=== PATIENT | male | born 1965 | race Caucasian/White ===

== ENCOUNTER → 2022-01-08 09:00 | Outpatient (CLI) | payer OTHER, SELFPAY ==
--- NOTE | 2022-01-08 | DI.RAD.S_ITS ---
PROCEDURE: XR CHEST 2V INDICATIONS: PALPITATIONS TECHNIQUE: 2 views of the chest were acquired. COMPARISON: None. FINDINGS: Surgical changes and devices: None. Lungs and pleura: Lungs are clear. No pleural effusions or pneumothorax. Mediastinum: Mediastinal contours are normal. Heart size is normal. Bones and chest wall: No suspicious bony abnormalities. Soft tissues appear unremarkable. IMPRESSION: Normal. Dictated by: Tray Moss M.D. on 01/08/2022 at 8:49 Approved by: Tray Moss M.D. on 01/08/2022 at 8:49
--- NOTE | 2022-01-08 | DI.ECHO.S_ITS ---
[facility]---------+ [facility] +---------+ : : [address] : : : : [id number] : : : : Phone: [phone]---------+ Echocardiogram Report + + :Name: GENNA HARRIS Study Date: 01/08/2022 Height: 72 in : :[facility] ReadingLocation: Weight: 145 lb : : Gender: Male BSA: 1.9 m2 : :: 1965 Age: 56 yrs BP: 121/62 mmHg: :Reason For Study: PALPITATIONS : :Ordering Physician: SHAHIDA, : :EVELIO Newman Performed By: Suzanne Portillo : :Referring: EVELIO PINEDO : + + Interpretation Summary The ejection fraction is estimated to be 55-60%. There is no significant valvular heart disease. Procedure: A two-dimensional transthoracic echocardiogram with color flow and Doppler was performed. The study quality was technically adequate. There is no prior echocardiogram noted for this patient. The patient was in sinus bradycardia with heart rates between 46-55 bpm during the exam. The patient had occasional PVCs during the exam. Left Ventricle: The left ventricle is normal in size and wall thickness. The ejection fraction is estimated to be 55-60%. There are no obvious focal wall motion abnormalities noted but poor endocardial definition reduces the sensitivity for the detection of such. Right Ventricle: The right ventricle is normal in size and function. Atria: The left atrial size is normal. Right atrial size is normal. There is no Doppler evidence for an interatrial shunt. Mitral Valve: The mitral valve is normal in structure and function. There is trace mitral regurgitation. Aortic Valve: The aortic valve is trileaflet. The aortic valve opens well. There is no aortic valve stenosis. No aortic regurgitation is present. Tricuspid Valve: The tricuspid valve is normal in structure and function. There is trace tricuspid regurgitation. The right ventricular systolic pressure is estimated to be at least 17 mmHg based on an estimated right atrial pressure of 3 mm Hg. Pulmonic Valve: The pulmonic valve leaflets are thin and pliable; valve motion is normal. There is no pulmonic valvular regurgitation. Great Vessels: The aortic root is normal size. The dimensions of the ascending aorta are normal. The IVC is of normal diameter and collapses greater than 50% with a sniff. This suggests a low right atrial pressure of 3 mm Hg. Pericardium/ Pleura There is no pericardial effusion. There is no pleural effusion. MMode/2D Measurements & Calculations LVIDd: 5.0 cm LVOT diam: 2.2 cm LVIDs: 3.2 cm Ao root diam: 3.5 cm FS: 35.3 % asc Aorta Diam: 3.3 cm IVSd: 0.57 cm Ao Arch Diam (Prox Trans): 2.6 cm LVPWd: 0.74 cm LV fonseca. diameter/BSA (cm/m^2): 2.7 LV sys. diameter/BSA (cm/m^2): 1.7 LA A2 area: 21.1 cm2 RA long axis: 5.2 cm LA A4 area: 14.5 cm2 RA area: 18.0 cm2 LA length (vol): 5.3 cm RA vol: 52.4 ml LA vol: 49.1 ml RA : 28.2 ml/m2 LA vol index: 26.4 ml/m2 IVC diam: 1.7 cm RVD1 (basal): 3.3 cm RVD2 (mid): 3.0 cm TAPSE: 1.9 cm Doppler Measurements & Calculations Ao V2 max: 112.8 cm/sec LVOT Max Pan: 85.1 cm/sec Ao V2 mean: 73.0 cm/sec LV V1 max P.9 mmHg Ao max P.1 mmHg LV V1 VTI: 18.2 cm Ao mean P.5 mmHg ELVIS(I,D): 2.8 cm2 Ao V2 VTI: 25.0 cm ELVIS(V,D): 2.9 cm2 sev ratio: 0.73 ELVIS indexed to BSA (cm^2/m^2): 1.5 MV E max pan: 71.1 cm/sec TR max pan: 188.0 cm/sec MV A max pan: 60.6 cm/sec TR max P.1 mmHg MV E/A: 1.2 PA V2 max: 88.2 cm/sec Med Peak E' Pan: 7.3 cm/sec PA V2 mean: 58.7 cm/sec E/E' med: 9.7 PA mean P.6 mmHg Lat Peak E' Pan: 13.0 cm/sec PA pr(Accel): 7.1 mmHg E/E' lat: 5.5 E/e' average: 7.6 MV dec time: 0.28 sec SV(LVOT): 69.7 ml Reading Physician:02:58 PM
== END ==
PROVIDERS: PCP Family Medicine; Referring Provider Family Medicine; Visit Provider Family Medicine
DX: R00.2 Palpitations (principal); J01.90 Acute sinusitis, unspecified
CPT/HCPCS: 71046; 93306

== ENCOUNTER 2023-01-11 13:28 | Emergency (ER) | payer OTHER, SELFPAY ==
[2023-01-11 13:36] VITALS: BP 138/62; PULSE 62; RESP 18; TEMP 36.6; O2SAT 99; BMI 19.2
--- NOTE | 2023-01-11 13:46 | DI.RAD.S_ITS ---
PROCEDURE: XR CHEST 1V INDICATIONS: chest pain TECHNIQUE: One view of the chest was acquired. COMPARISON: [facility], CR, XR CHEST 2V, 01/08/2022, 9:03. FINDINGS: Surgical changes and devices: None. Lungs and pleura: Lungs are clear. No pleural effusions or pneumothorax. Mediastinum: Mediastinal contours appear normal. Heart size is normal. Bones and chest wall: No suspicious bony lesions. Overlying soft tissues appear unremarkable. IMPRESSION: No acute cardiopulmonary process. Dictated by: Tr Flood M.D. on 01/11/2023 at 14:00 Approved by: Tr Flood M.D. on 01/11/2023 at 14:01
[2023-01-11 14:00] VITALS: BP 133/70; PULSE 60; O2SAT 99
--- NOTE | 2023-01-11 14:05 | ED_ITS ---
HPI - Arrhythmia/Palpitations General Chief Complaint: Arrhythmia/Palpitations Stated Complaint: sent by DR to have his heart rate checked Time Seen by Provider: 01/11/23 13:48 Source: patient Mode of arrival: Ambulatory Limitations: no limitations History of Present Illness HPI narrative: Patient is a 57-year-old male who had an appointment with his primary doctor earlier today for evaluation of recurrent palpitations. He states that while he was at that appointment he had an EKG performed. He was told to come to the emergency department by his primary doctor because of an abnormal EKG. He does not have this EKG with him. He does not know what the doctor told him was wrong with the EKG. He is scheduled for an echocardiogram next week. He also discussed with his primary doctor today about having a Holter monitor but is unsure if this has been ordered. He currently does not have any symptoms. Related Data Allergies Allergy/AdvReac Type Severity Reaction Status Date / Time No Known Drug Allergies Allergy Verified 01/11/23 13:46 Review of Systems Constitutional Constitutional: Reports system reviewed and no additional complaints, except as documented Cardiovascular Cardiovascular: Reports system reviewed and no additional complaints, except as documented Respiratory Respiratory: Reports system reviewed and no additional complaints, except as do cumented Gastrointestinal Gastrointestinal: Reports system reviewed and no additional complaints, except as documented Hematologic/Lymphatic On Anticoagulants: No Patient History Social History Smoking Status: Never smoker Smoking Status: Never smoker alcohol intake frequency: holidays/special occasions only Substance Use Type: does not use Exam Initial Vital Signs Initial Vital Signs: Vital Signs Temperature 97.8 F 01/11/23 13:36 Pulse Rate 62 01/11/23 13:36 Respiratory Rate 18 01/11/23 13:36 Blood Pressure 138/62 01/11/23 13:36 Pulse Oximetry 99 01/11/23 13:36 Oxygen Delivery Method 01/11/23 13:36 Const General: cooperative, comfortable and No ill appearing HENMT Head: normal to inspection and normocephalic Resp Effort & Inspection: normal respiratory effort Auscultation: clear to auscultation bilaterally Cardio Rate: bradycardic Rhythm: regular rhythm GI Inspection: normal to inspection Skin General: no rashes or lesions noted Neuro General: patient alert and moves all extremities Extrem General: normal to inspection and capillary refill normal Course Orders Ordered: ED Orders 01/11/23 13:46 XR chest 1V Stat EKG-12 Lead Stat 01/11/23 13:52 Complete Blood Count AUTO DIFF Stat Comprehensive Metabolic Panel Stat Lipase Stat Magnesium Stat Troponin & CK Cardiac Panel Stat Vital Signs Vital signs: Vital Signs - 8 hr 01/11/23 13:36 01/11/23 14:00 01/11/23 14:30 Temperature 97.8 F Pulse Rate 62 60 59 L Respiratory Rate 18 18 Blood Pressure 138/62 133/70 104/57 L Pulse Oximetry 99 99 99 Oxygen Delivery Method Room Air Room Air Room Air MDM - Arrhythmia/Palpitations Lab Data Attestation: I reviewed the patient's lab results. 01/11/23 13:52 01/11/23 13:52 Labs: Lab Results 01/11/23 01/11/23 Range/Units 13:52 13:52 WBC 4.0 L (4.5-11.0) X10^3/uL RBC 4.72 (4.5-5.9) X10^6/uL Hgb 14.5 (13.5-17.5) g/dL Hct 41.8 (41-53) % MCV 88.5 (80-100) fL MCH 30.7 (26-34) PG MCHC 34.7 (30-36) % RDW 12.7 (11.6-14.8) % Plt Count 199 (150-400) X10^3/uL Neut % (Auto) 65.6 (50-75) % Lymph % (Auto) 24.2 L (25-40) % [place] % (Auto) 7.8 (3-14) % Eos % (Auto) 2.0 (2-4) % Baso % (Auto) 0.4 (0-2) % Neut # (Auto) 2600 (1404-2606) /uL Lymph # (Auto) 1000 L (5153-8413) /uL Newport # (Auto) 300 (0-900) /uL Eos # (Auto) 100 (0-450) /uL Baso # (Auto) 0 (0-100) /uL Sodium 138 (137-145) mmol/L Potassium 3.8 (3.4-5.1) mmol/L Chloride 99 (98-107) mmol/L Carbon Dioxide 29 (22-32) mmol/L BUN 17 (9-20) mg/dL Creatinine 0.74 (0.66-1.25) mg/dL Estimated GFR > 60 (>60) mL/min BUN/Creatinine Ratio 23.0 H (6-22) Glucose 124 H (70-100) mg/dL Calcium 9.1 (8.4-10.2) mg/dL Magnesium 2.1 (1.6-2.3) mg/dL Total Bilirubin 0.5 (0.2-1.3) mg/dL AST 31 (17-59) IU/L ALT 29 (<50) IU/L Alkaline Phosphatase 34 L (38-126) U/L Total Creatine Kinase 141 (55-170) U/L CK-MB (CK-2) 1.36 (<2.37) ng/mL CK-MB (CK-2) Rel Index 1.0 L (1.5-5.0) % Troponin I < 0.012 (0.01-0.034) ng/mL Total Protein 7.2 (6.3-8.2) g/dL Albumin 4.3 (3.5-5.0) g/dL Globulin 2.9 (1.7-4.1) g/dL Albumin/Globulin Ratio 1.5 (1.0-2.8) Lipase 54 (23-300) U/L Imaging Data Chest x-ray: Radiologist's Impresson: PROCEDURE:? XR CHEST 1V ? INDICATIONS:? chest pain ? TECHNIQUE:? One view of the chest was acquired.? ? COMPARISON:? [facility], , XR CHEST 2V, 01/08/2022, 9:03. ? FINDINGS:? ? Surgical changes and devices:? None.? ? Lungs and pleura:? Lungs are clear.? No pleural effusions or pneumothorax.? ? Mediastinum:? Mediastinal contours appear normal.? Heart size is normal.? ? Bones and chest wall:? No suspicious bony lesions.? Overlying soft tissues appear unremarkable.? ? IMPRESSION:? No acute cardiopulmonary process. ECG Data Attestation: I personally reviewed and interpreted this ECG as follows: Interpretation: Sinus bradycardia Ventricular rate of 51 Normal axis Normal QRS Normal QTC No ST T wave changes MDM Narrative Medical decision making narrative: I did not have the EKG from his primary doctor to review however other than bradycardia his EKG here in the ER is unremarkable. He also was not having any palpitations here in the ER. His labs and chest x-ray are unremarkable. Chest x-ray is unremarkable. Patient states he has talked with his primary doctor about a Holter monitor. He also is scheduled for an echocardiogram next week. Provided reassurance to the patient. No further workup required in the emergency department. Will discharge patient home with return precautions. He expressed understanding and agreement. Discharge Plan Departure Patient Disposition: Home Clinical Impression: Palpitations Instructions: DI for Arrhythmias Activity Restrictions/Additional Instructions: Your workup here in the emergency department is unremarkable. I do recommend that you talk with your primary doctor about the indications for a Holter monitor and keep the appointment that you have scheduled for the echocardiogram. Return to the emergency department for any new symptoms. Referrals: Oscar Betts MD [Primary Care Provider] - Stand Alone Forms: Patient Portal/API
[2023-01-11 14:08] LABS: Add Manual Diff / Slide Review NO; Basophils Absolute Auto 0 /uL (0-100); Basophils Percent Auto 0.4 % (0-2); Eosinophils Absolute Auto 100 /uL (0-450); Hematocrit 41.8 % (41-53); Hemoglobin 14.5 g/dL (13.5-17.5); Lymphocytes Absolute Auto 1000 /uL (1100-4500); Lymphocytes Percent Auto 24.2 % (25-40); Mean Corpuscular HGB Conc 34.7 % (30-36); Mean Corpuscular Hemoglobin 30.7 PG (26-34); Mean Corpuscular Volume 88.5 fL (80-100); Monocytes Absolute Auto 300 /uL (0-900); Monocytes Percent Auto 7.8 % (3-14); Neutrophils Absolute Auto 2600 /uL (1500-7000); Neutrophils Percent Auto 65.6 % (50-75); Platelet Count 199 X10^3/uL (150-400); Red Blood Cell Count 4.72 X10^6/uL (4.5-5.9); Red Cell Distribution Width 12.7 % (11.6-14.8)
[2023-01-11 14:22] LABS: Alanine Aminotransferase 29 IU/L (<50); Albumin 4.3 g/dL (3.5-5.0); Albumin Globulin Ratio 1.5 (1.0-2.8); Alkaline Phosphatase 34 U/L (38-126); Aspartate Aminotransferase 31 IU/L (17-59); Bilirubin Total 0.5 mg/dL (0.2-1.3); Blood Urea Nitrogen 17 mg/dL (9-20); Calcium 9.1 mg/dL (8.4-10.2); Carbon Dioxide 29 mmol/L (22-32); Chloride 99 mmol/L (98-107); Creatine Kinase 141 U/L (55-170); Estimated Glomerular Filt Rate > 60 mL/min (>60); Globulin 2.9 g/dL (1.7-4.1); Glucose 124 mg/dL (70-100); HEMOLYSIS < 15 (0-50); Lipase 54 U/L (23-300); Magnesium 2.1 mg/dL (1.6-2.3); Potassium 3.8 mmol/L (3.4-5.1); Sodium 138 mmol/L (137-145); Total Protein 7.2 g/dL (6.3-8.2)
[2023-01-11 14:30] VITALS: BP 104/57; PULSE 59; RESP 18; O2SAT 99
[2023-01-11 14:33] LABS: Troponin I < 0.012 ng/mL (0.01-0.034)
[2023-01-11 14:37] LABS: Creatine Kinase MB 1.36 ng/mL (<2.37)
== END 2023-01-11 14:50 | disposition home or self-care (01) ==
PROVIDERS: Emergency Provider Emergency Medicine; PCP Family Medicine
DX: R00.2 Palpitations (principal); R07.9 Chest pain, unspecified
CPT/HCPCS: 36415; 71045; 80053; 82550; 82553; 83690; 83735; 84484; 85025; 93005; 99283; 99284

== ENCOUNTER → 2023-01-21 08:01 | Outpatient (CLI) | payer OTHER, SELFPAY ==
--- NOTE | 2023-01-21 | DI.ECHO.S_ITS ---
[facility] +---------+ [facility] +---------+ : : [address] [place] : : : : [id number] : : : : Phone: [phone]+ Echocardiogram Report + + :Name: GENNA HARRIS Study Date: 01/21/2023 Height: 72 in : :[facility] ReadingLocation: Weight: 142 lb : : Gender: Male BSA: 1.8 m2 : :: 1965 Age: 57 yrs BP: 109/67 mmHg: :Reason For Study: PALPITATIONS : :Ordering Physician: SHAHIDA, : :EVELIO Newman Performed By: DENICE DEE : :Referring: EVELIO PINEDO : + + Interpretation Summary The patient had frequent PVCs during the exam. The patient was in normal sinus rhythm during the exam. The left ventricle is normal in size and wall thickness. Left ventricular ejection fraction is estimated to be 55 +/- 5%. Previously 55 to 60%. LV dyssynchrony during PVCs. The right ventricle is normal in size and function. No significant valvular pathology seen. The IVC is of normal diameter and collapses greater than 50% with a sniff. This suggests a low right atrial pressure of 3 mm Hg. Procedure: A two-dimensional transthoracic echocardiogram with color flow and Doppler was performed. The study quality was technically adequate. Comparison is made with the echocardiogram of 01/08/2022. The patient had frequent PVCs during the exam. The patient was in normal sinus rhythm during the exam. Left Ventricle: The left ventricle is normal in size and wall thickness. There is no thrombus. A false chord is noted (normal variant). Left ventricular ejection fraction is estimated to be 55 +/- 5%. LV dyssynchrony during PVCs. Diastolic parameters suggest probable normal left ventricular diastolic function and normal filling pressures. Right Ventricle: The right ventricle is normal in size and function. Atria: The left atrial size is normal. There has been no significant change since the previous study. The right atrium is normal in size. There is no Doppler evidence for an interatrial shunt. Mitral Valve: The mitral valve is normal in structure and function. There is systolic anterior motion of the chordal apparatus. Redundant elongated chordae are noted. There is trace mitral regurgitation. Aortic Valve: The aortic valve is trileaflet. The aortic valve opens well. There is no aortic valve stenosis. No aortic regurgitation is present. Tricuspid Valve: The tricuspid valve is normal in structure and function. Pulmonary artery pressures cannot be estimated because of the lack of a measurable TR jet velocity. There is trace tricuspid regurgitation. Pulmonic Valve: The pulmonic valve is normal in structure and function. There is no pulmonic valvular regurgitation. Great Vessels: The aortic root is normal size. The ascending aorta is normal in size. The IVC is of normal diameter and collapses greater than 50% with a sniff. This suggests a low right atrial pressure of 3 mm Hg. Pericardium/ Pleura There is no pericardial effusion. There is no pleural effusion. MMode/2D Measurements & Calculations LVIDd: 4.5 cm LVOT diam: 2.1 cm LVIDs: 3.0 cm Ao root diam: 3.4 cm FS: 34.0 % asc Aorta Diam: 3.1 cm IVSd: 0.63 cm Ao Arch Diam (Prox Trans): 2.2 cm LVPWd: 0.85 cm LV fonseca. diameter/BSA (cm/m^2): 2.4 LV sys. diameter/BSA (cm/m^2): 1.6 LA A2 area: 14.9 cm2 RA long axis: 5.3 cm LA A4 area: 10.3 cm2 RA area: 16.6 cm2 LA length (vol): 4.4 cm RA vol: 44.6 ml LA vol: 29.5 ml RA : 24.2 ml/m2 LA vol index: 16.0 ml/m2 IVC diam: 1.4 cm RVD1 (basal): 2.9 cm TAPSE: 2.6 cm Doppler Measurements & Calculations Ao V2 max: 110.8 cm/sec LVOT Max Pan: 100.1 cm/sec Ao V2 mean: 76.9 cm/sec LV V1 max P.0 mmHg Ao max P.9 mmHg LV V1 VTI: 24.2 cm Ao mean P.7 mmHg ELVIS(I,D): 3.2 cm2 Ao V2 VTI: 26.3 cm ELVIS(V,D): 3.2 cm2 sev ratio: 0.92 ELVIS indexed to BSA (cm^2/m^2): 1.8 MV E max pan: 79.5 cm/sec PA V2 max: 97.7 cm/sec MV A max pan: 46.4 cm/sec PA V2 mean: 69.1 cm/sec MV E/A: 1.7 PA mean P.0 mmHg Med Peak E' Pan: 10.7 cm/sec PA pr(Accel): -13.5 mmHg E/E' med: 7.4 Lat Peak E' Pan: 14.1 cm/sec E/E' lat: 5.6 E/e' average: 6.5 MV dec time: 0.25 sec SV(LVOT): 85.2 ml Reading Physician:03:12 PM
== END ==
PROVIDERS: PCP Family Medicine; Referring Provider Family Medicine; Visit Provider Family Medicine
DX: R00.2 Palpitations (principal)
CPT/HCPCS: 93306

== ENCOUNTER 2023-03-16 13:18 | Emergency (ER) | payer OTHER, SELFPAY ==
[2023-03-16] VITALS (8 sets, daily range): BP systolic 104–157; BP diastolic 57–85; PULSE 61–79; RESP 15–19; TEMP 36.6; O2SAT 97–100; BMI 19.6
--- NOTE | 2023-03-16 13:26 | DI.RAD.S_ITS ---
PROCEDURE: XR CHEST 1V INDICATIONS: chest pain TECHNIQUE: One view of the chest was acquired. COMPARISON: [facility], CR, XR CHEST 1V, 01/11/2023, 13:46. FINDINGS: Surgical changes and devices: None. Lungs and pleura: Lungs are clear. No pleural effusions or pneumothorax. Mediastinum: Mediastinal contours appear normal. Heart size is normal. Bones and chest wall: No suspicious bony lesions. Overlying soft tissues appear unremarkable. IMPRESSION: No acute radiographic abnormality. Dictated by: Paul Herr M.D. on 03/16/2023 at 13:59 Approved by: Paul Herr M.D. on 03/16/2023 at 13:59
[2023-03-16 13:41] LABS: Add Manual Diff / Slide Review NO; Basophils Absolute Auto 0 /uL (0-100); Basophils Percent Auto 0.2 % (0-2); Eosinophils Absolute Auto 100 /uL (0-450); Eosinophils Percent Auto 1.8 % (2-4); Hematocrit 42.5 % (41-53); Hemoglobin 14.8 g/dL (13.5-17.5); Lymphocytes Absolute Auto 1200 /uL (1100-4500); Lymphocytes Percent Auto 29.3 % (25-40); Mean Corpuscular HGB Conc 34.7 % (30-36); Mean Corpuscular Hemoglobin 30.8 PG (26-34); Mean Corpuscular Volume 88.6 fL (80-100); Monocytes Absolute Auto 300 /uL (0-900); Monocytes Percent Auto 6.3 % (3-14); Neutrophils Absolute Auto 2600 /uL (1500-7000); Neutrophils Percent Auto 62.4 % (50-75); Platelet Count 234 X10^3/uL (150-400); Red Cell Distribution Width 12.7 % (11.6-14.8); White Blood Cell Count 4.1 X10^3/uL (4.5-11.0)
--- NOTE | 2023-03-16 13:42 | PC.NURSE ---
Pt with complaints of palpitations/chest pressure for the past several months. Has had holter monitoring showing frequent PVCs/PACs. Pt reports palpitations more constant today.
[2023-03-16 13:48] LABS: INR 0.9 (0.9-1.3); Prothrombin Time 10.8 SECONDS (10.1-12.7)
[2023-03-16 13:51] LABS: PTT Partial Thromboplastin Tim 30 SECONDS (26-36)
--- NOTE | 2023-03-16 13:55 | ED_ITS ---
HPI - Arrhythmia/Palpitations General Chief Complaint: Arrhythmia/Palpitations Stated Complaint: sent by DR connor be T-2 Time Seen by Provider: 03/16/23 13:36 Source: patient Mode of arrival: Ambulatory Limitations: no limitations History of Present Illness HPI narrative: 57-year-old male who has a history of palpitations. Recently had a Holter monitor which showed PVCs. He states for the past couple days he is had more frequent palpitations and some shortness of breath. No lightheadedness. No bubba st pain. He states that the palpitations are fairly consistent. No lower extremity swelling. No change medications. Afebrile. No sinus congestion. No sore throat. Has not tried anything for symptoms prior to arrival. Related Data Allergies Allergy/AdvReac Type Severity Reaction Status Date / Time No Known Drug Allergies Allergy Verified 03/16/23 13:27 Review of Systems Review of Systems ROS Unobtainable: All systems reviewed & are unremarkable except as noted in HPI and below Patient History Social History Smoking Status: Never smoker Smoking Status: Never smoker alcohol intake frequency: holidays/special occasions only Substance Use Type: does not use Exam Initial Vital Signs Initial Vital Signs: Vital Signs Temperature 97.9 F 03/16/23 13:22 Pulse Rate 79 03/16/23 13:22 Respiratory Rate 15 03/16/23 13:22 Blood Pressure 157/63 H 03/16/23 13:22 Pulse Oximetry 98 03/16/23 13:22 Oxygen Delivery Method Room Air 03/16/23 13:22 Const General: cooperative, comfortable and No ill appearing [facility] Head: normal to inspection and normocephalic Resp Effort & Inspection: normal respiratory effort Auscultation: clear to auscultation bilaterally Cardio Rate: regular rate Rhythm: regular rhythm GI Inspection: normal to inspection and non-distended Skin General: no rashes or lesions noted Neuro General: patient alert, patient awake and moves all extremities Extrem General: No edema Course Orders Ordered: ED Orders 03/16/23 13:26 XR chest 1V Stat EKG-12 Lead Stat 03/16/23 13:30 Complete Blood Count AUTO DIFF Stat Comprehensive Metabolic Panel Stat Lipase Stat Magnesium Stat PTT Partial Thromboplastin Greg Stat Prothrombin Time INR Stat Troponin & CK Cardiac Panel Stat 03/16/23 13:54 COVID19 -Nasal RAPID Stat Vital Signs Vital signs: Vital Signs - 8 hr 03/16/23 13:22 03/16/23 13:25 03/16/23 13:26 Temperature 97.9 F Pulse Rate 79 Respiratory Rate 15 Blood Pressure 157/63 H 157/63 H Pulse Oximetry 98 98 Oxygen Delivery Method Room Air 03/16/23 13:26 03/16/23 13:30 03/16/23 13:32 Temperature Pulse Rate 68 66 Respiratory Rate 19 Blood Pressure 125/85 Pulse Oximetry 99 100 Oxygen Delivery Method 03/16/23 13:32 Temperature Pulse Rate 70 Respiratory Rate 18 Blood Pressure Pulse Oximetry 99 Oxygen Delivery Method MDM - Arrhythmia/Palpitations Medical Records Attestation: I reviewed the patient's medical records. Lab Data Attestation: I reviewed the patient's lab results. 03/16/23 13:30 03/16/23 13:30 Labs: Lab Results 03/16/23 03/16/23 03/16/23 Range/Units 13:30 13:30 13:30 WBC 4.1 L (4.5-11.0) X10^3/uL RBC 4.80 (4.5-5.9) X10^6/uL Hgb 14.8 (13.5-17.5) g/dL Hct 42.5 (41-53) % MCV 88.6 (80-100) fL MCH 30.8 (26-34) PG MCHC 34.7 (30-36) % RDW 12.7 (11.6-14.8) % Plt Count 234 (150-400) X10^3/uL Neut % (Auto) 62.4 (50-75) % Lymph % (Auto) 29.3 (25-40) % Harvey % (Auto) 6.3 (3-14) % Eos % (Auto) 1.8 L (2-4) % Baso % (Auto) 0.2 (0-2) % Neut # (Auto) 2600 (4443-1301) /uL Lymph # (Auto) 1200 (4889-4571) /uL Harvey # (Auto) 300 (0-900) /uL Eos # (Auto) 100 (0-450) /uL Baso # (Auto) 0 (0-100) /uL PT 10.8 (10.1-12.7) SECONDS INR 0.9 (0.9-1.3) APTT 30 (26-36) SECONDS Sodium 139 (137-145) mmol/L Potassium 3.8 (3.4-5.1) mmol/L Chloride 103 (98-107) mmol/L Carbon Dioxide 30 (22-32) mmol/L BUN 21 H (9-20) mg/dL Creatinine 0.78 (0.66-1.25) mg/dL Estimated GFR > 60 (>60) mL/min BUN/Creatinine Ratio 26.9 H (6-22) Glucose 90 (70-100) mg/dL Calcium 8.9 (8.4-10.2) mg/dL Magnesium 2.1 (1.6-2.3) mg/dL Total Bilirubin 0.6 (0.2-1.3) mg/dL AST 42 (17-59) IU/L ALT 37 (<50) IU/L Alkaline Phosphatase 32 L (38-126) U/L Total Creatine Kinase 57 (55-170) U/L CK-MB (CK-2) TNP CK-MB (CK-2) Rel Index TNP Troponin I < 0.012 (0.01-0.034) ng/mL Total Protein 7.3 (6.3-8.2) g/dL Albumin 4.3 (3.5-5.0) g/dL Globulin 3.0 (1.7-4.1) g/dL Albumin/Globulin Ratio 1.4 (1.0-2.8) Lipase 53 (23-300) U/L SARS-CoV-2 (PCR) (Negative) 03/16/23 Range/Units 13:54 WBC (4.5-11.0) X10^3/uL RBC (4.5-5.9) X10^6/uL Hgb (13.5-17.5) g/dL Hct (41-53) % MCV (80-100) fL MCH (26-34) PG MCHC (30-36) % RDW (11.6-14.8) % Plt Count (150-400) X10^3/uL Neut % (Auto) (50-75) % Lymph % (Auto) (25-40) % Harvey % (Auto) (3-14) % Eos % (Auto) (2-4) % Baso % (Auto) (0-2) % Neut # (Auto) (6748-3958) /uL Lymph # (Auto) (3901-0964) /uL Harvey # (Auto) (0-900) /uL Eos # (Auto) (0-450) /uL Baso # (Auto) (0-100) /uL PT (10.1-12.7) SECONDS INR (0.9-1.3) APTT (26-36) SECONDS Sodium (137-145) mmol/L Potassium (3.4-5.1) mmol/L Chloride (98-107) mmol/L Carbon Dioxide (22-32) mmol/L BUN (9-20) mg/dL Creatinine (0.66-1.25) mg/dL Estimated GFR (>60) mL/min BUN/Creatinine Ratio (6-22) Glucose (70-100) mg/dL Calcium (8.4-10.2) mg/dL Magnesium (1.6-2.3) mg/dL Total Bilirubin (0.2-1.3) mg/dL AST (17-59) IU/L ALT (<50) IU/L Alkaline Phosphatase (38-126) U/L Total Creatine Kinase (55-170) U/L CK-MB (CK-2) CK-MB (CK-2) Rel Index Troponin I (0.01-0.034) ng/mL Total Protein (6.3-8.2) g/dL Albumin (3.5-5.0) g/dL Globulin (1.7-4.1) g/dL Albumin/Globulin Ratio (1.0-2.8) Lipase (23-300) U/L SARS-CoV-2 (PCR) Negative (Negative) Imaging Data Chest x-ray: Radiologist's Impresson: ROCEDURE:? XR CHEST 1V ? INDICATIONS:? chest pain ? TECHNIQUE:? One view of the chest was acquired.? ? COMPARISON:? [facility], CR, XR CHEST 1V, 01/11/2023, 13:46. ? FINDINGS:? ? Surgical changes and devices:? None.? ? Lungs and pleura:? Lungs are clear.? No pleural effusions or pneumothorax.? ? Mediastinum:? Mediastinal contours appear normal.? Heart size is normal.? ? Bones and chest wall:? No suspicious bony lesions.? Overlying soft tissues appear unremarkable.? ? IMPRESSION:? No acute radiographic abnormality. ECG Data Attestation: I personally reviewed and interpreted this ECG as follows: Interpretation: Sinus rhythm Ventricular rate is 74 Frequent PVCs Incomplete right bundle branch block MDM Narrative Medical decision making narrative: Patient is well-appearing. Chest x-ray is unremarkable. Vital signs are unremarkable. He is having frequent PVCs which is most likely what is causing his presenting symptoms today. His electrolytes are unremarkable. Low suspicio n for ACS. Low suspicion for pneumonia. He is not clinically in heart failure. Patient is not hypoxic. We did discuss potentially starting him on medications to help with the symptoms however we also discussed the option of waiting until he talks with his primary doctor to see if his current episodes resolved. He also discussed potentially putting him on some anxiety medicine as he does feel somewhat anxious about the PVCs however he would like to hold on this as well. Will have him contact his primary doctor for a follow-up. He was given return precautions. He expressed understanding and agreement. Discharge Plan Departure Patient Disposition: Home Clinical Impression: Frequent PVCs Instructions: Premature Ventricular Beats Activity Restrictions/Additional Instructions: I do recommend that you make a follow-up appointment with your primary care doctor. Return to the emergency department for new or worsening symptoms like we discussed. Referrals: Oscar Betts MD [Primary Care Provider] - Shruthi Crowder MD [Physician] - Stand Alone Forms: Patient Portal/API
[2023-03-16 13:56] LABS: Alanine Aminotransferase 37 IU/L (<50); Albumin 4.3 g/dL (3.5-5.0); Albumin Globulin Ratio 1.4 (1.0-2.8); Alkaline Phosphatase 32 U/L (38-126); Aspartate Aminotransferase 42 IU/L (17-59); BUN Creatinine Ratio 26.9 (6-22); Bilirubin Total 0.6 mg/dL (0.2-1.3); Blood Urea Nitrogen 21 mg/dL (9-20); Calcium 8.9 mg/dL (8.4-10.2); Carbon Dioxide 30 mmol/L (22-32); Chloride 103 mmol/L (98-107); Creatine Kinase 57 U/L (55-170); Estimated Glomerular Filt Rate > 60 mL/min (>60); Glucose 90 mg/dL (70-100); HEMOLYSIS 21 (0-50); Lipase 53 U/L (23-300); Magnesium 2.1 mg/dL (1.6-2.3); Potassium 3.8 mmol/L (3.4-5.1); Sodium 139 mmol/L (137-145); Total Protein 7.3 g/dL (6.3-8.2)
[2023-03-16 14:08] LABS: Troponin I < 0.012 ng/mL (0.01-0.034)
[2023-03-16 14:13] LABS: COVID19 -Nasal RAPID Negative (Negative)
== END 2023-03-16 15:11 | disposition home or self-care (01) ==
PROVIDERS: Emergency Provider Emergency Medicine; PCP Family Medicine
DX: I49.3 Ventricular premature depolarization (principal); R07.9 Chest pain, unspecified; R06.02 Shortness of breath; Z20.822 Contact with and (suspected) exposure to COVID-19
CPT/HCPCS: 36415; 71045; 80053; 82550; 83690; 83735; 84484; 85025; 85610; 85730; 87635; 93005; 99284; C9803

== ENCOUNTER 2024-10-03 13:40 | Emergency (ER) | payer OTHER, SELFPAY ==
[2024-10-03] VITALS (8 sets, daily range): BP systolic 113–134; BP diastolic 61–71; PULSE 56–68; RESP 18–19; TEMP 36.9; O2SAT 97–100; BMI 19.2
--- NOTE | 2024-10-03 14:12 | DI.CT.S_ITS ---
PROCEDURE: CT ANGIO HEAD AND NECK INDICATIONS: headache TECHNIQUE: After the administration of intravenous contrast, 1 mm thick sections acquired from the aortic arch through the [place]. 3-dimensional attrfpr-fgrwyqkkk-foxrpcrfva (MIP) and/or volume rendering reformats were acquired of the central intracranial vasculature and neck separately. For radiation dose reduction, the following was used: automated exposure control, adjustment of mA and/or kV according to patient size. COMPARISON: [facility], CT, CT HEAD/BRAIN WO CON, 10/03/2024, 15:00. FINDINGS: Image quality: Limited by bolus timing, with venous contamination. There is streak artifact seen through the level of the shoulders. BRAIN: CSF spaces: Ventricles are normal in size and shape. Basal cisterns are patent. No extra-axial fluid collections. Brain: No significant abnormality of the brain can be seen. Skull and face: Calvarium and facial bones appear intact, without suspicious lesions. Orbits appear normal. Sinuses: Sinuses and mastoids are clear. HEAD CT ANGIOGRAPHY: Anterior circulation: Intracranial internal carotid arteries are normal in size and flow. There is a diminutive right A1 segment, with a corresponding robust left A1 segment. This is considered to be a normal developmental variant of the [place], of typically no clinical consequence. The flow within the paired anterior cerebral arteries is otherwise normal and symmetric. The flow within the middle cerebral arteries is normal and symmetric. The anterior communicating artery is seen. No aneurysms are seen. Posterior circulation: Visualized portions of the vertebral arteries demonstrate normal caliber, and join to form a normal appearing basilar artery. Flow within the posterior cerebral arteries is normal and symmetric. No aneurysms are seen. NECK CT ANGIOGRAPHY: Carotid system: The great vessels demonstrate a conventional anatomy as they arise from the aortic arch. The origins of the common carotid arteries appear patent. The common carotid arteries demonstrate normal caliber and courses. The bifurcation regions are both widely patent. The internal carotid arteries demonstrate normal calibers and courses. Posterior circulation: The origins of the vertebral arteries both appear widely patent. The more superior extracranial portions of both vertebral arteries also demonstrate normal courses and calibers. They join to form a normal appearing basilar artery. Soft tissues: Visualized neck soft tissues demonstrate no suspicious abnormalities. Bones: No suspicious bony lesions. Visualized cervical spine appears normally aligned. Age-appropriate bony degenerative changes are seen. IMPRESSION: No significant intracranial arterial abnormality is seen. No significant abnormality is seen within the arteries of the neck. Any quantitative measurements of stenosis were performed using NASCET criteria. Dictated by: Tray Moss M.D. on 10/03/2024 at 14:15 Approved by: Tray Moss M.D. on 10/03/2024 at 14:17
--- NOTE | 2024-10-03 14:12 | DI.CT.S_ITS ---
PROCEDURE: CT HEAD/BRAIN WO CON INDICATIONS: headache TECHNIQUE: Noncontrast 4.5 mm thick angled axial sections acquired from the foramen magnum to the vertex, with coronal and sagittal reformats. For radiation dose reduction, the following was used: automated exposure control, adjustment of mA and/or kV according to patient size. COMPARISON: [facility], CT, CT ANGIO HEAD AND NECK, 10/03/2024, 15:00. FINDINGS: Image quality: Diagnostic. CSF spaces: Basal cisterns are patent. No extra-axial fluid collections. Ventricles are normal in size and shape. Brain: No midline shift. No intracranial masses or hemorrhage. [place]-white matter interface is normal. Note is made of symmetric thickening of the tentorium. Skull and face: Calvarium and visualized facial bones are intact, without suspicious lesions. Sinuses: Visualized sinuses and mastoids are clear. IMPRESSION: No chirag acute intracranial hemorrhage can be seen. No acute intracranial pathology. Dictated by: Tray Moss M.D. on 10/03/2024 at 14:14 Approved by: Tray Moss M.D. on 10/03/2024 at 14:15
[2024-10-03 14:38] LABS: Add Manual Diff / Slide Review NO; Basophils Absolute Auto 0 /uL (0-100); Basophils Percent Auto 0.3 % (0-2); Eosinophils Absolute Auto 0 /uL (0-450); Eosinophils Percent Auto 0.4 % (2-4); Hematocrit 40.7 % (41-53); Hemoglobin 13.8 g/dL (13.5-17.5); Lymphocytes Absolute Auto 900 /uL (1100-4500); Mean Corpuscular HGB Conc 33.9 % (30-36); Mean Corpuscular Hemoglobin 30.7 PG (26-34); Mean Corpuscular Volume 90.7 fL (80-100); Monocytes Absolute Auto 300 /uL (0-900); Neutrophils Absolute Auto 4000 /uL (1500-7000); Neutrophils Percent Auto 76.3 % (50-75); Platelet Count 236 X10^3/uL (150-400); Red Blood Cell Count 4.48 X10^6/uL (4.5-5.9); Red Cell Distribution Width 12.9 % (11.6-14.8); White Blood Cell Count 5.2 X10^3/uL (4.5-11.0)
[2024-10-03 14:50] LABS: Blood Urea Nitrogen 21 mg/dL (9-20); Carbon Dioxide 29 mmol/L (22-32); Chloride 106 mmol/L (98-107); Estimated Glomerular Filt Rate > 60 mL/min (>60); Glucose 101 mg/dL (70-100); HEMOLYSIS < 15 (0-50); Potassium 4.1 mmol/L (3.4-5.1); Sodium 138 mmol/L (137-145)
[2024-10-03] MEDS: ACETAMINOPHEN 325 MG TABLET 975 MG PO (16:06)
--- NOTE | 2024-10-03 18:38 | ED_ITS ---
HPI - Headache General Chief Complaint: Headache Stated Complaint: severe headache Time Seen by Provider: 10/03/24 14:12 Mode of arrival: Ambulatory History of Present Illness HPI Narrative: Patient is a 59-year-old healthy male who presents today with sudden onset of left-sided neck pain and headache. He denies any sort of injury. He does go to the chiropractor but has not been in a number of months. He reports it is very he is unable to flex his neck forward without causing excruciating pain. He needs to be sitting upright or lying flat. He denies any numbness tingling or weakness in his upper extremity or leg. He has not had any sort of fever or chills. He denies any chest pain or other symptoms. He has been taking Tylenol ibuprofen with very minimal relief Related Data Previous Rx's Medication Instructions Recorded hydrocodone 5 mg-acetaminophen 325 1 tab PO Q6H PRN pain #10 tabs 10/03/24 mg tablet methocarbamol 750 mg tablet 750 mg PO Q8H PRN muscle spasm #14 10/03/24 tabs Allergies Allergy/AdvReac Type Severity Reaction Status Date / Time No Known Drug Allergies Allergy Verified 10/03/24 14:15 Patient History Social History Smoking Status: Never smoker Smoking Status: Never smoker alcohol intake frequency: 0-2 drinks per day Substance Use Type: does not use Exam Initial Vital Signs Initial Vital Signs: Vital Signs Temperature 98.4 F 10/03/24 13:59 Pulse Rate 68 10/03/24 13:59 Respiratory Rate 19 10/03/24 13:59 Blood Pressure 131/63 10/03/24 13:59 Pulse Oximetry 99 10/03/24 13:59 Oxygen Delivery Method Room Air 10/03/24 13:59 GENERAL: Alert pleasant 51-year-old male and in no acute distress. HEENT: Head atraumatic,EOMI, pupils reactive, face symmetric, moist mucous membranes NECK: No midline vertebral tenderness but he is tender left C2 transverse process area pain is very reproducible at the spot. CARDIOVASCULAR: Regular rate and rhythm without murmurs, rubs or gallops. RESPIRATORY: Breath sounds equal bilaterally, no wheezes rales or rhonchi. ABDOMEN: Soft, nontender. Normoactive bowel sounds all 4 quadrants. No guarding or rebound. EXTREMITIES: Normal range of motion, no clubbing or edema. Neurovascularly intact NEUROLOGICAL: Alert and oriented x4.Normal gait and speech. Cranial nerves II through XII grossly intact. Good [place]-xa-xvdu, good sxrl-wh-ewyd, strength equal bilaterally, no dysarthria or aphasia, sensation in tact to soft touch bilaterally, no visual changes, no facial droop SKIN: Warm, dry, no laceration, no petechiae, no rashes or lesions. Scores NIH Stroke Scale Level of Conciousness: Alert, keenly responsive Ask month/age: Answers both questions correctly. Open/close eyes, close hand: Performs both tasks correctly Best gaze horizontal: Normal Visual denise: No visual loss Facial palsy: Normal symetrical movement Left arm drift: No drift for full 10 sec Right arm drift: No drift for full 10 sec Left leg drift: No drift for full 5 sec Right leg drift: No drift for full 5 sec Limb ataxia: Absent Sensory on face/arms/legs: Normal, no sensory loss Best language: No aphasia, normal Dysarthria: Normal Extinction or inattention: No abnormality Total NIH Stroke scale score: 0 Course Orders Ordered: Discontinued Medications Acetaminophen (Acetaminophen 325 Mg Tablet) 975 mg PO NOW ONE Stop: 10/03/24 15:49 Last Admin: 10/03/24 16:06 Dose: 975 mg Documented By: VERA Hydrocodone Bitart/Acetaminophen (Hydrocodone/Acet 5/325 Prepack) 1 bottle MISC DIRECTED ONE Stop: 10/03/24 19:38 Last Admin: 10/03/24 19:42 Dose: 1 bottle Documented By: DESMOND Hydromorphone HCl (Hydromorphone 0.5 Mg Inj) 0.5 mg IV NOW ONE Stop: 10/03/24 18:50 Last Admin: 10/03/24 18:52 Dose: 0.5 mg Documented By: LULU Vital Signs Vital signs: Vital Signs - 8 hr 10/03/24 18:30 10/03/24 18:30 10/03/24 19:00 Pulse Rate 60 58 L Respiratory Rate Blood Pressure 119/66 Pulse Oximetry 99 99 Oxygen Delivery Method Room Air Room Air 10/03/24 19:00 10/03/24 19:30 10/03/24 19:30 Pulse Rate 56 L Respiratory Rate 18 Blood Pressure 113/71 125/66 Pulse Oximetry 97 Oxygen Delivery Method Room Air MDM - Headache Lab Data 10/03/24 14:29 10/03/24 14:29 Labs: Lab Results 10/03/24 Range/Units 14:29 WBC 5.2 (4.5-11.0) X10^3/uL RBC 4.48 L (4.5-5.9) X10^6/uL Hgb 13.8 (13.5-17.5) g/dL Hct 40.7 L (41-53) % MCV 90.7 (80-100) fL MCH 30.7 (26-34) PG MCHC 33.9 (30-36) % RDW 12.9 (11.6-14.8) % Plt Count 236 (150-400) X10^3/uL Neut % (Auto) 76.3 H (50-75) % Lymph % (Auto) 17.0 L (25-40) % [place] % (Auto) 6.0 (3-14) % Eos % (Auto) 0.4 L (2-4) % Baso % (Auto) 0.3 (0-2) % Neut # (Auto) 4000 (8414-7236) /uL Lymph # (Auto) 900 L (3362-4181) /uL [place] # (Auto) 300 (0-900) /uL Eos # (Auto) 0 (0-450) /uL Baso # (Auto) 0 (0-100) /uL Sodium 138 (137-145) mmol/L Potassium 4.1 (3.4-5.1) mmol/L Chloride 106 (98-107) mmol/L Carbon Dioxide 29 (22-32) mmol/L BUN 21 H (9-20) mg/dL Creatinine 0.75 (0.66-1.25) mg/dL Estimated GFR > 60 (>60) mL/min BUN/Creatinine Ratio 28.0 H (6-22) Glucose 101 H (70-100) mg/dL Calcium 10.0 (8.4-10.2) mg/dL Imaging Data CT scan - head: Radiologist's Impression: PROCEDURE: CT HEAD/BRAIN WO CON INDICATIONS: headache TECHNIQUE: Noncontrast 4.5 mm thick angled axial sections acquired from the foramen magnum to the vertex, with coronal and sagittal reformats. For radiation dose reduction, the following was used: automated exposure control, adjustment of mA and/or kV according to patient size. COMPARISON: [facility], CT, CT ANGIO HEAD AND NECK, 10/03/2024, 15:00. FINDINGS: Image quality: Diagnostic. CSF spaces: Basal cisterns are patent. No extra-axial fluid collections. Ventricles are normal in size and shape. Brain: No midline shift. No intracranial masses or hemorrhage. [place]-white matter interface is normal. Note is made of symmetric thickening of the tentorium. Skull and face: Calvarium and visualized facial bones are intact, without suspicious lesions. Sinuses: Visualized sinuses and mastoids are clear. IMPRESSION: No chirag acute intracranial hemorrhage can be seen. No acute intracranial pathology. Dictated by: Tray Moss M.D. on 10/03/2024 at 14:14 CTA - brain/neck: Radiologist's Impression: PROCEDURE: CT ANGIO HEAD AND NECK INDICATIONS: headache TECHNIQUE: After the administration of intravenous contrast, 1 mm thick sections acquired from the aortic arch through the [place]. 3-dimensional qzphjqt-oaizhatrk-nhcvmyyclj (MIP) and/or volume rendering reformats were acquired of the central intracranial vasculature and neck separately. For radiation dose reduction, the following was used: automated exposure control, adjustment of mA and/or kV according to patient size. COMPARISON: [facility], CT, CT HEAD/BRAIN WO CON, 10/03/2024, 15:00. FINDINGS: Image quality: Limited by bolus timing, with venous contamination. There is streak artifact seen through the level of the shoulders. BRAIN: CSF spaces: Ventricles are normal in size and shape. Basal cisterns are patent. No extra-axial fluid collections. Brain: No significant abnormality of the brain can be seen. Skull and face: Calvarium and facial bones appear intact, without suspicious lesions. Orbits appear normal. Sinuses: Sinuses and mastoids are clear. HEAD CT ANGIOGRAPHY: Anterior circulation: Intracranial internal carotid arteries are normal in size and flow. There is a diminutive right A1 segment, with a corresponding robust left A1 segment. This is considered to be a normal developmental variant of the [place], of typically no clinical consequence. The flow within the paired anterior cerebral arteries is otherwise normal and symmetric. The flow within the middle cerebral arteries is normal and symmetric. The anterior communicating artery is seen. No aneurysms are seen. Posterior circulation: Visualized portions of the vertebral arteries demonstrate normal caliber, and join to form a normal appearing basilar artery. Flow within the posterior cerebral arteries is normal and symmetric. No aneurysms are seen. NECK CT ANGIOGRAPHY: Carotid system: The great vessels demonstrate a conventional anatomy as they arise from the aortic arch. The origins of the common carotid arteries appear patent. The common carotid arteries demonstrate normal caliber and courses. The bifurcation regions are both widely patent. The internal carotid arteries demonstrate normal calibers and courses. Posterior circulation: The origins of the vertebral arteries both appear widely patent. The more superior extracranial portions of both vertebral arteries also demonstrate normal courses and calibers. They join to form a normal appearing basilar artery. Soft tissues: Visualized neck soft tissues demonstrate no suspicious abnormalities. Bones: No suspicious bony lesions. Visualized cervical spine appears normally aligned. Age-appropriate bony degenerative changes are seen. IMPRESSION: No significant intracranial arterial abnormality is seen. No significant abnormality is seen within the arteries of the neck. Any quantitative measurements of stenosis were performed using NASCET criteria. Dictated by: Tray Moss M.D. on 10/03/2024 at 14:15 MDM Narrative Medical decision making narrative: Patient 51-year-old male who presents with sudden onset of pain. It is definitely positional unable to bend over to tie shoes needs to be sitting upright. It is reproducible in the left C2 transverse process. Head CT/CT angio are negative. No evidence of dissection. He does not have any sort of fever low suspicion for meningitis. Blood work has been reviewed overall reassuring no significant leukocytosis. Patient received dose Dilaudid which did seem to help quite a bit. He is feeling better. At this time feels ready any able to go home. Discharge Plan Departure Patient Disposition: Home Clinical Impression: Acute neck pain Instructions: DI for Neck Pain Activity Restrictions/Additional Instructions: *You have been diagnosed with neck pain *What to do: At this time please increase activity as tolerated. You may see her chiropractor as you feel *Continue to take medications as directed [place] 1 tablet every 4-6 hours if needed for severe pain Methocarbamol 750 mg every 8 hours if needed for spasm *Follow up with your primary care provider in 2-3 days or call [phone] *Return to ER if you should have increasing pain numbness tingling weakness or any new, worsening or concerning symptoms CONTROLLED SUBSTANCE DISCHARGE (Narcotoic/benzodiazepine/Flexeril/Phenergan) 1. You have been prescribed narcotic medications, it does have acetaminophen/Tylenol/paracetamol in it, DO NOT TAKE MORE THAN 4,00mg in 24 hours of Tylenol. TRAMADOL DOES NOT CONTAIN TYLENOL 2. Please understand that we cannot provide further refills of narcotics, benzodiazepines or controlled substances through the ED and her pain management will need to be through your provider. 3. While on these medications you cannot drive or operate heavy machinery. 4. You cannot sign legal documents or perform any duties such as this. 5. As long as you're taking opiate pain medications he should also be taking a stool softener such as Colace, Dulcolax, MiraLAX or prune juice, to help avoid constipation. Prescriptions: New hydrocodone-acetaminophen 5-325 mg tablet 1 tab PO Q6H PRN (Reason: pain) Qty: 10 0RF methocarbamol 750 mg tablet 750 mg PO Q8H PRN (Reason: muscle spasm) Qty: 14 0RF Referrals: Oscar Betts MD [Primary Care Provider] - Stand Alone Forms: Patient Portal/API/Survey
[2024-10-03] MEDS: HYDROMORPHONE 0.5 MG INJ IV (18:52)
[2024-10-03] MEDS: HYDROCODONE/ACET 5/325 PREPACK 1 BOTTLE MISC (19:42)
== END 2024-10-03 19:52 | disposition home or self-care (01) ==
PROVIDERS: Emergency Medicine; Emergency Provider Emergency Medicine; PCP Family Medicine
DX: M54.2 Cervicalgia (principal); R51.9 Headache, unspecified
CPT/HCPCS: 36415; 70450; 70496; 70498; 80048; 85025; 96374; 99284; J1171

== ENCOUNTER 2024-10-06 07:11 | Emergency (ER) | payer OTHER, SELFPAY ==
[2024-10-06] VITALS (12 sets, daily range): BP systolic 106–149; BP diastolic 55–69; PULSE 51–74; RESP 18; TEMP 36.6; O2SAT 98–100; BMI 19.2
--- NOTE | 2024-10-06 07:30 | ED_ITS ---
HPI - Headache General Chief Complaint: Headache Stated Complaint: severe headache and neck pain Time Seen by Provider: 10/06/24 07:29 Mode of arrival: Ambulatory History of Present Illness HPI Narrative: 59-year-old gentleman with 2nd visit for severe head pain. There was no trauma, no history of migraine, no fevers cough or chills. The pain began acutely on the left upper neck radiating into the occipital insertion area and then radiating forward toward his ear with some mild pain radiating over his face. 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 He has not noticing fevers, headaches, vision changes, tinnitus, hearing loss. When he was seen on the he had CTA and CT angiogram of the head and neck that did not show significant pathology. He has taken a couple of doses of hydrocodone which briefly help alleviate some of the pain but it is getting worse and he comes in for further evaluation. Related Data Previous Rx's Medication Instructions Recorded hydrocodone 5 mg-acetaminophen 325 1 tab PO Q6H PRN pain #10 tabs 10/03/24 mg tablet methocarbamol 750 mg tablet 750 mg PO Q8H PRN muscle spasm #14 10/03/24 tabs dexamethasone 4 mg tablet 10 mg (2.5 x 4 mg) PO DAILY #5 tabs 10/06/24 oxycodone-acetaminophen 5 mg-325 1 tab PO Q6H PRN pain #14 tabs 10/06/24 mg tablet Allergies Allergy/AdvReac Type Severity Reaction Status Date / Time No Known Drug Allergies Allergy Verified 10/06/24 07:24 Review of Systems Review of Systems Narrative: Pertinent positive and negative findings as per HPI Patient History Social History Smoking Status: Never smoker Smoking Status: Never smoker alcohol intake frequency: 0-2 drinks per day Substance Use Type: does not use Exam Initial Vital Signs Initial Vital Signs: Vital Signs Pulse Rate 64 10/06/24 07:16 Pulse Oximetry 100 10/06/24 07:16 General: Healthy appearing, i in pain but not acutely toxic Able to give a complete and coherent history. Well-nourished well-developed HEENT: Moist mucous membranes, normal sclera with reactive pupils, he does have tenderness the left aspect of C1 and C2 that is not midline, exquisite tenderness over the occipital insertion site on the left without inflammation or fluctuance, tenderness just anterior to the left tragus. Left tympanic membrane is unremarkable. He does not have cervical adenopathy. He does not have nuchal rigidity Respiratory: Lungs are clear to auscultation, no wheezing no rales no rhonchi. Full and symmetrical air movement Cardiac: Regular rate and rhythm no murmurs no bruits Neurologic: Grossly neurologically intact with no obvious asymmetries or abnormalities Extremities: No trauma, well perfused Psych: Cooperative, appropriate insight and affect Course Orders Ordered: ED Orders 10/06/24 07:47 MR cervical spine wo/w con Stat MR head/brain wo/w con Stat 10/06/24 08:18 CRP [C-Reactive Protein Quant] Stat Complete Blood Count AUTO DIFF Stat Comprehensive Metabolic Panel Stat Erythrocyte Sedimentation Rate Stat Hydromorphone HCl (Hydromorphone 0.5 Mg Inj) 0.5 mg IV Q15MIN PRN PRN Reason: Pain, Last Admin: 10/06/24 09:31 Dose: 0.5 mg Documented By: CTS Discontinued Medications Dexamethasone (Dexamethasone 10 Mg/Ml Vial) 10 mg IV NOW ONE Stop: 10/06/24 09:11 Last Admin: 10/06/24 09:30 Dose: 10 mg Documented By: CTS Lidocaine/Epinephrine (Lidocaine 2% W/Epi Inj 10 Ml Vial) 10 ml INJ NOW ONE Stop: 10/06/24 08:16 Last Admin: 10/06/24 08:21 Dose: 10 ml Documented By: RB Lorazepam (Lorazepam 2 Mg/Ml Inj) 0.5 mg IV NOW ONE Stop: 10/06/24 08:36 Last Admin: 10/06/24 09:46 Dose: 0.5 mg Documented By: SPF Ondansetron HCl (Ondansetron 4 Mg/2 Ml Inj) 4 mg IV NOW ONE Stop: 10/06/24 09:35 Last Admin: 10/06/24 09:39 Dose: 4 mg Documented By: SPF Vital Signs Vital signs: Vital Signs - 8 hr 10/06/24 07:16 10/06/24 07:19 10/06/24 07:30 Temperature 97.8 F Pulse Rate 64 70 Respiratory Rate 18 Blood Pressure 149/67 H 121/64 Pulse Oximetry 100 100 Oxygen Delivery Method Room Air 10/06/24 07:30 10/06/24 08:00 10/06/24 08:00 Temperature Pulse Rate 56 L 59 L Respiratory Rate Blood Pressure 106/55 L Pulse Oximetry 100 100 Oxygen Delivery Method 10/06/24 08:30 10/06/24 08:30 10/06/24 08:46 Temperature Pulse Rate 51 L Respiratory Rate Blood Pressure 136/69 113/56 L Pulse Oximetry 100 Oxygen Delivery Method 10/06/24 08:46 10/06/24 09:00 10/06/24 09:01 Temperature Pulse Rate 63 55 L Respiratory Rate Blood Pressure 127/64 Pulse Oximetry 100 100 Oxygen Delivery Method 10/06/24 09:01 10/06/24 11:15 10/06/24 11:16 Temperature Pulse Rate 63 74 Respiratory Rate Blood Pressure 139/67 Pulse Oximetry 100 99 Oxygen Delivery Method 10/06/24 11:16 Temperature Pulse Rate 72 Respiratory Rate Blood Pressure Pulse Oximetry 98 Oxygen Delivery Method MDM - Headache Lab Data 10/06/24 08:18 10/06/24 08:18 Labs: Lab Results 10/06/24 Range/Units 08:18 WBC 5.5 (4.5-11.0) X10^3/uL RBC 4.61 (4.5-5.9) X10^6/uL Hgb 14.2 (13.5-17.5) g/dL Hct 41.7 (41-53) % MCV 90.5 (80-100) fL MCH 30.8 (26-34) PG MCHC 34.0 (30-36) % RDW 12.9 (11.6-14.8) % Plt Count 228 (150-400) X10^3/uL Neut % (Auto) 76.9 H (50-75) % Lymph % (Auto) 16.6 L (25-40) % [place] % (Auto) 5.3 (3-14) % Eos % (Auto) 0.9 L (2-4) % Baso % (Auto) 0.3 (0-2) % Neut # (Auto) 4200 (7484-1681) /uL Lymph # (Auto) 900 L (2027-7411) /uL [place] # (Auto) 300 (0-900) /uL Eos # (Auto) 0 (0-450) /uL Baso # (Auto) 0 (0-100) /uL ESR 5 (0-15) MM/HR Sodium 138 (137-145) mmol/L Potassium 4.7 (3.4-5.1) mmol/L Chloride 104 (98-107) mmol/L Carbon Dioxide 29 (22-32) mmol/L BUN 18 (9-20) mg/dL Creatinine 0.69 (0.66-1.25) mg/dL Estimated GFR > 60 (>60) mL/min BUN/Creatinine Ratio 26.1 H (6-22) Glucose 97 (70-100) mg/dL Calcium 9.2 (8.4-10.2) mg/dL Total Bilirubin 0.7 (0.2-1.3) mg/dL AST 31 (17-59) IU/L ALT 28 (<50) IU/L Alkaline Phosphatase 27 L (38-126) U/L C-Reactive Protein < 0.5 (<1.0) mg/dL Total Protein 6.9 (6.3-8.2) g/dL Albumin 4.4 (3.5-5.0) g/dL Globulin 2.5 (1.7-4.1) g/dL Albumin/Globulin Ratio 1.8 (1.0-2.8) Imaging Data MR cervical spine: Radiologist's Impression: PROCEDURE: MR CERVICAL SPINE WO/W CON INDICATIONS: occipitial and upper C spine pain with paresthesia TECHNIQUE: Noncontrast sagittal T1 spin echo and T2 fast spin echo, sagittal STIR, foraminal oblique sagittal T2 fast spin echo, axial gradient echo or T2 fast spin echo through the cervical spine. After the administration of contrast, axial and sagittal T1 spin echo with fat saturation through the cervical spine. COMPARISON: [facility], CT, CT HEAD/BRAIN WO CON, 10/03/2024, 15:00. FINDINGS: Image quality: Excellent. Alignment and curvature: There is normal bony alignment. Marrow: Marrow is normal in overall signal, without suspicious enhancement. Spinal cord: Visualized spinal cord has normal size and signal. No cerebellar tonsillar herniation. No abnormal intramedullary enhancement. Paraspinous soft tissues: No paravertebral masses or suspicious enhancement. Nonenhancing complex focus of hypointense T1 and increased T2 signal within the subcutaneous fat at the level of C3 posteriorly. It measures 1.5 x 2.2 by 1.7 cm. Discs: Multilevel disc desiccation. C2-3: No disc bulge, spinal stenosis or foraminal narrowing. C3-4: Minimal disc bulge without spinal stenosis. Mild right foraminal narrowing. C4-5: Minimal disc bulge without spinal stenosis. No foraminal narrowing. C5-6: Mild disc bulge with superimposed left posterior paracentral protrusion. Mild spinal stenosis. Moderate bilateral foraminal narrowing with uncovertebral hypertrophy. C6-7: Mild disc bulge with moderate spinal stenosis. Moderate to severe bilateral foraminal narrowing, left greater than right with uncovertebral hypertrophy. C7-T1: No disc bulge, spinal stenosis or foraminal narrowing. IMPRESSION: Multilevel disc bulges, spinal stenosis and foraminal narrowing most severe at C6-7. Complex focus of signal within the subcutaneous tissues posteriorly suggestive of sebaceous cyst. Dictated by: Marian Kennedy M.D. on 10/06/2024 at 11:29 MR brain: Radiologist's Impression: PROCEDURE: MR HEAD/BRAIN WO/W CON INDICATIONS: left occipital/ear/facial pain and paresthesi TECHNIQUE: Noncontrast axial T1 spin echo, axial T2 fast spin echo, sagittal and axial FLAIR, coronal T2 fast spin echo, axial gradient echo, axial diffusion and ADC through the brain. After the administration of contrast, axial and coronal and sagittal 3D VIBE or T1 spin echo with fat saturation through the brain. COMPARISON: [facility], CT, CT ANGIO HEAD AND NECK, 10/03/2024, 15:00. [facility], CT, CT HEAD/BRAIN WO CON, 10/03/2024, 15:00. FINDINGS: Image quality: Excellent. CSF Spaces: Basal cisterns are patent. No extra-axial fluid collections. Ventricles are normal in size and shape. Brain: No midline shift. No intracranial bleeds or masses. No abnormal intracranial enhancement. The brainstem appears normal. Diffusion-weighted images demonstrate no acute infarct. No chronic ischemic insults. Normal intravascular flow voids are present. Cerebellopontine angles in visualized nerves demonstrate no mass lesion, abnormal enhancement or signal. Skull and face: Calvarial marrow is normal in signal. Orbits appear normal. Sinuses: Sinuses demonstrate small mucous retention cysts versus polyps. Minimal to mild scattered bilateral maxillary sinus mucosal thickening. IMPRESSION: 1. No acute intracranial process. 2. Cerebellopontine angle and visualized nerves demonstrates no areas of abnormal enhancement. Dictated by: Marian Kennedy M.D. on 10/06/2024 at 11:36 MDM Narrative Medical decision making narrative: CC: Left head and neck pain Complicating co-morbidities: Seen on the for the same, no history of migraine or chronic pain syndromes Data collected from: patient Medical records reviewed: Medical record from the for similar complaint reviewed as are CT scans of the head and lab workup Differential considered: Musculoskeletal pain, inflammation at occipital insertion site, cranial nerve 7 or 8 involvement, developing acoustic neuroma Exam documented above, pertinent findings include: Exquisite left occipital tenderness, no evidence of infection, no TMJ involvement tenderness preauricular area tympanic membrane unremarkable Lab Test results independently reviewed as above. Pertinent findings: Chemistries are reassuring CBC is unremarkable C-reactive protein is not elevated Imaging studies independently reviewed: MR of the brain cervical spine did not show acute pathology that might explain his head pain Treatments: Occipital trigger point injection, left side. 2 cc of 2% lidocaine with epi is injected into the site of maximal tenderness. Patient tolerated this well. Dexamethasone, IV 10 mg, parenteral Dilaudid, IV sedation with Ativan prior to MRI Re-evaluations: With shared decision-making we opted to proceed with additional blood work looking for inflammation, an MRI to look at the facial nerve and ear canal as well as the upper cervical spine. We also discussed trying trigger point injection into the left occipital space to see if it alleviates his pain. 915am patient notes that the trigger point injection actually did help significantly with the muscle spasm radiating up the back of his head and into his back. He notes that as it is beginning to wear off his pain is returning. Discussion: 59-year-old gentleman with severe left-sided headache, posterior auricular, neck pain also notes exacerbation of his chronic low back pain. He has had workup for stroke that was unremarkable, MRIs today did not show any other pathology to explain the severe head pain. 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 He is willing to try ice, heat, Epsom salt baths. I encouraged him to make sure that he remains mobile as he is dealing with this acute pain issue. We discussed use of ibuprofen and Tylenol. He found that the Vicodin was not all that effective we will give him a brief course of Percocet to accompany 2 additional days of dexamethasone. At this point there was no indication for additional imaging or hospitalization and he is safe for discharge Discharge Plan Departure Patient Disposition: Home Clinical Impression: Acute neck pain Headache Qualifiers: Headache type: unspecified Headache chronicity pattern: acute headache I ntractability: intractable Qualified Code(s): R51.9 - Headache, unspecified Instructions: DI for Headache Activity Restrictions/Additional Instructions: Thank you for coming in today I still do not have an explanation for your severe head pain. We did do an MRI of your brain that did not show acute findings, an MRI of your cervical find, equally reassuring. Your blood work does not suggest infection. I suspect that there is a significant musculoskeletal component to your headache likely correlating with your low back pain. Using 400 mg of ibuprofen (2 [id number] pills) and 1 Tylenol every 6 hours can be very helpful in controlling pain. For severe pain you can take 400 mg of ibuprofen and 1 Percocet. I have also sent a prescription for dexamethasone, anti-inflammatory to help with pain, to take for the next 2 days. I would encourage you to use all modalities at your disposal to help with pain. If you found a chiropractor that you enjoy working with that can be helpful. Acupuncture, ice, heat, massage, hot baths are all useful. You might consider an appointment with Alec Andrews, Physical therapist. [phone], [employer] If you find that you are getting worse or develop any new symptoms, please feel free to return to the emergency department for further evaluation. Prescriptions: New dexamethasone 4 mg tablet 10 mg PO DAILY Qty: 5 0RF oxycodone-acetaminophen 5-325 mg tablet 1 tab PO Q6H PRN (Reason: pain) Qty: 14 0RF No Action hydrocodone-acetaminophen 5-325 mg tablet 1 tab PO Q6H PRN (Reason: pain) Qty: 10 0RF methocarbamol 750 mg tablet 750 mg PO Q8H PRN (Reason: muscle spasm) Qty: 14 0RF Referrals: Oscar Betts MD [Primary Care Provider] - Stand Alone Forms: Patient Portal/API/Survey
--- NOTE | 2024-10-06 07:47 | DI.MRI.S_ITS ---
PROCEDURE: MR HEAD/BRAIN WO/W CON INDICATIONS: left occipital/ear/facial pain and paresthesi TECHNIQUE: Noncontrast axial T1 spin echo, axial T2 fast spin echo, sagittal and axial FLAIR, coronal T2 fast spin echo, axial gradient echo, axial diffusion and ADC through the brain. After the administration of contrast, axial and coronal and sagittal 3D VIBE or T1 spin echo with fat saturation through the brain. COMPARISON: [facility], CT, CT ANGIO HEAD AND NECK, 10/03/2024, 15:00. [facility], CT, CT HEAD/BRAIN WO CON, 10/03/2024, 15:00. FINDINGS: Image quality: Excellent. CSF Spaces: Basal cisterns are patent. No extra-axial fluid collections. Ventricles are normal in size and shape. Brain: No midline shift. No intracranial bleeds or masses. No abnormal intracranial enhancement. The brainstem appears normal. Diffusion-weighted images demonstrate no acute infarct. No chronic ischemic insults. Normal intravascular flow voids are present. Cerebellopontine angles in visualized nerves demonstrate no mass lesion, abnormal enhancement or signal. Skull and face: Calvarial marrow is normal in signal. Orbits appear normal. Sinuses: Sinuses demonstrate small mucous retention cysts versus polyps. Minimal to mild scattered bilateral maxillary sinus mucosal thickening. IMPRESSION: 1. No acute intracranial process. 2. Cerebellopontine angle and visualized nerves demonstrates no areas of abnormal enhancement. Dictated by: Marian Kennedy M.D. on 10/06/2024 at 11:36 Approved by: Marian Kennedy M.D. on 10/06/2024 at 11:40
--- NOTE | 2024-10-06 07:47 | DI.MRI.S_ITS ---
PROCEDURE: MR CERVICAL SPINE WO/W CON INDICATIONS: occipitial and upper C spine pain with paresthesia TECHNIQUE: Noncontrast sagittal T1 spin echo and T2 fast spin echo, sagittal STIR, foraminal oblique sagittal T2 fast spin echo, axial gradient echo or T2 fast spin echo through the cervical spine. After the administration of contrast, axial and sagittal T1 spin echo with fat saturation through the cervical spine. COMPARISON: [facility], CT, CT HEAD/BRAIN WO CON, 10/03/2024, 15:00. FINDINGS: Image quality: Excellent. Alignment and curvature: There is normal bony alignment. Marrow: Marrow is normal in overall signal, without suspicious enhancement. Spinal cord: Visualized spinal cord has normal size and signal. No cerebellar tonsillar herniation. No abnormal intramedullary enhancement. Paraspinous soft tissues: No paravertebral masses or suspicious enhancement. Nonenhancing complex focus of hypointense T1 and increased T2 signal within the subcutaneous fat at the level of C3 posteriorly. It measures 1.5 x 2.2 by 1.7 cm. Discs: Multilevel disc desiccation. C2-3: No disc bulge, spinal stenosis or foraminal narrowing. C3-4: Minimal disc bulge without spinal stenosis. Mild right foraminal narrowing. C4-5: Minimal disc bulge without spinal stenosis. No foraminal narrowing. C5-6: Mild disc bulge with superimposed left posterior paracentral protrusion. Mild spinal stenosis. Moderate bilateral foraminal narrowing with uncovertebral hypertrophy. C6-7: Mild disc bulge with moderate spinal stenosis. Moderate to severe bilateral foraminal narrowing, left greater than right with uncovertebral hypertrophy. C7-T1: No disc bulge, spinal stenosis or foraminal narrowing. IMPRESSION: Multilevel disc bulges, spinal stenosis and foraminal narrowing most severe at C6-7. Complex focus of signal within the subcutaneous tissues posteriorly suggestive of sebaceous cyst. Dictated by: Marian Kennedy M.D. on 10/06/2024 at 11:29 Approved by: Marian Kennedy M.D. on 10/06/2024 at 11:36
[2024-10-06] MEDS: LIDOCAINE 2% W/EPI INJ 10 ML VIAL INJ (08:21)
[2024-10-06 08:28] LABS: Add Manual Diff / Slide Review NO; Basophils Absolute Auto 0 /uL (0-100); Basophils Percent Auto 0.3 % (0-2); Eosinophils Absolute Auto 0 /uL (0-450); Eosinophils Percent Auto 0.9 % (2-4); Hematocrit 41.7 % (41-53); Hemoglobin 14.2 g/dL (13.5-17.5); Lymphocytes Absolute Auto 900 /uL (1100-4500); Lymphocytes Percent Auto 16.6 % (25-40); Mean Corpuscular Hemoglobin 30.8 PG (26-34); Mean Corpuscular Volume 90.5 fL (80-100); Monocytes Absolute Auto 300 /uL (0-900); Monocytes Percent Auto 5.3 % (3-14); Neutrophils Absolute Auto 4200 /uL (1500-7000); Neutrophils Percent Auto 76.9 % (50-75); Platelet Count 228 X10^3/uL (150-400); Red Blood Cell Count 4.61 X10^6/uL (4.5-5.9); Red Cell Distribution Width 12.9 % (11.6-14.8); White Blood Cell Count 5.5 X10^3/uL (4.5-11.0)
[2024-10-06 08:41] LABS: Alanine Aminotransferase 28 IU/L (<50); Albumin 4.4 g/dL (3.5-5.0); Albumin Globulin Ratio 1.8 (1.0-2.8); Alkaline Phosphatase 27 U/L (38-126); Aspartate Aminotransferase 31 IU/L (17-59); BUN Creatinine Ratio 26.1 (6-22); Bilirubin Total 0.7 mg/dL (0.2-1.3); Blood Urea Nitrogen 18 mg/dL (9-20); Calcium 9.2 mg/dL (8.4-10.2); Carbon Dioxide 29 mmol/L (22-32); Chloride 104 mmol/L (98-107); Estimated Glomerular Filt Rate > 60 mL/min (>60); Globulin 2.5 g/dL (1.7-4.1); Glucose 97 mg/dL (70-100); HEMOLYSIS < 15 (0-50); Potassium 4.7 mmol/L (3.4-5.1); Sodium 138 mmol/L (137-145); Total Protein 6.9 g/dL (6.3-8.2)
[2024-10-06 08:44] LABS: C-Reactive Protein Quant < 0.5 mg/dL (<1.0)
[2024-10-06] MEDS: DEXAMETHASONE 10 MG/ML VIAL IV (09:30)
[2024-10-06] MEDS: HYDROMORPHONE 0.5 MG INJ IV (09:31)
[2024-10-06 09:32] LABS: Erythrocyte Sedimentation Rate 5 MM/HR (0-15)
[2024-10-06] MEDS: ONDANSETRON 4 MG/2 ML INJ IV (09:39)
[2024-10-06] MEDS: LORazepam 2 MG/ML INJ 0.5 MG IV (09:46)
== END 2024-10-06 12:31 | disposition home or self-care (01) ==
PROVIDERS: Emergency Provider Emergency Medicine; PCP Family Medicine
DX: R51.9 Headache, unspecified (principal); M54.2 Cervicalgia
CPT/HCPCS: 36415; 70553; 72156; 80053; 85025; 85651; 86140; 96374; 96375; 99284; A9579; J1100; J1171; J2060; J2405